=== PATIENT | female | born 1965 | race Caucasian/White ===

== ENCOUNTER 2017-04-20 13:36 | Emergency (ER) | payer OTHER ==
[~2017-04-20] VITALS: Ht 157.5 cm; Wt 104.8 kg
[2017-04-20 15:14] LABS: BASOPHIL % 0.4 % (0-2); PLATELET COUNT 219 x10^3mcL (130-400); RED CELL DISTRIBUTION WIDTH 14.1 % (11.5-14.5)
[2017-04-20 15:24] LABS: CALCIUM 8.9 mg/dL (8.5-10.1); CARBON DIOXIDE 30.7 mmol/L (21-32); CHLORIDE SERUM 105 mmol/L (98-107); CREATININE SERUM 0.9 mg/dL (0.6-1.0); GFR1 > 60 mL/min; GLUCOSE SERUM 165 mg/dL (74-106); SODIUM SERUM 142 mmol/L (136-145)
[2017-04-20 15:30] LABS: ALBUMIN 3.8 g/dL (3.4-5.0); ALKALINE PHOSPHATASE 90 U/L (46-116); ALT/SGPT 34 U/L (14-59); AMYLASE 44 U/L (25-115); AST/SGOT 24 U/L (15-37); BILIRUBIN TOTAL 0.78 mg/dL (0.20-1.00); LIPASE 150 IU/L (73-393)
[2017-04-20 15:58] VITALS: BP 133/72
== END 2017-04-20 15:58 | disposition home or self-care (01) ==
LOC: ED 13:36
PROVIDERS: Emergency Medicine
DX: R10.33 Periumbilical pain (principal)
CPT/HCPCS: 36415; 83880; J1885; Q0162

== ENCOUNTER 2017-05-24 13:54 | Emergency (ER) | payer OTHER ==
[2017-05-24 20:11] VITALS: BP 131/82
== END 2017-05-24 20:11 | disposition home or self-care (01) ==
LOC: ED 13:54
DX: S82.842A Displaced bimalleolar fracture of left lower leg, initial encounter for closed fracture (principal); E11.9 Type 2 diabetes mellitus without complications; Z79.84 Long term (current) use of oral hypoglycemic drugs; X58.XXXA Exposure to other specified factors, initial encounter; Y93.9 Activity, unspecified; Y99.8 Other external cause status; Y92.89 Other specified places as the place of occurrence of the external cause
CPT/HCPCS: J1170; J1885; Q0092

== ENCOUNTER 2019-09-03 12:55 | Emergency (ER) | payer OTHER ==
[~2019-09-03] VITALS: Ht 157.5 cm; Wt 103.0 kg
[2019-09-03 13:25] VITALS: BP 139/71; Ht 157.5 cm; Wt 103.0 kg
== END 2019-09-03 16:35 | disposition home or self-care (01) ==
LOC: ED 12:55
DX: N60.01 Solitary cyst of right breast (principal)
CPT/HCPCS: 76641